=== PATIENT | male | born 1955 | race Caucasian/White ===

== ENCOUNTER → 2017-08-20 | Outpatient (CLI) | payer MEDICARE ==
[~2017-08-20] MED LIST: AC500T PO; ASP81TEC PO; C250T PO; CARV25TA PO; CATHETER FLUSH 10 ML SYR IV PRN; ENAL10TA PO; OMEG1CAP26 PO; PRAV80TA2 PO; VITA-198 PO
--- NOTE | 2017-08-20 14:16 | Diagnostic Imaging Report ---
EXAMINATION: Hepatobiliary scan with ejection fraction. INDICATION: Abdominal pain. This study was performed following the administration of 5.42 mCi of Choletec and 8 ounces of Ensure. There are no prior studies available for comparison. FINDINGS: There is uptake of the radiotracer by the gallbladder before 30 minutes. This would weigh against the diagnosis of acute cholecystitis. There is also extension of the radiotracer into the small bowel indicating that the common bile duct is nonobstructed. The ejection fraction is 43% (normal greater than 35%). IMPRESSION: 1. There is no evidence for acute cholecystitis or for obstruction of the common bile duct. 2. The ejection fraction is 43% and within normal limits. Dictated by: Dictated on workstation # [id number]
== END ==
LOC: CARD 11:33
PROVIDERS: ATTEND Family Medicine
DX: R14.0 Abdominal distension (gaseous) (principal)
CPT/HCPCS: 78227